=== PATIENT | female | born 1995 ===

== ENCOUNTER 2020-04-30 12:10 | Outpatient (REF) | payer MEDICAID, SELFPAY | END 2020-04-30 12:11 | disposition home or self-care (01) | LOC: HO.LAB 12:10 | PROVIDERS: Visit Provider Internal Medicine | DX: Z20.822 Contact with and (suspected) exposure to COVID-19 (principal) | CPT/HCPCS: 36415; C9803; U0003; U0005 ==

== ENCOUNTER 2020-07-08 13:47 | Outpatient (REF) | payer MEDICAID, SELFPAY ==
[2020-07-08 14:40] LABS: COVID-19 Test Negative (Negative); IDNOW Serial# 55D5AD1C
== END 2020-07-08 13:48 | disposition home or self-care (01) ==
LOC: HO.LAB 13:47
PROVIDERS: Visit Provider Internal Medicine
DX: Z20.822 Contact with and (suspected) exposure to COVID-19 (principal)
CPT/HCPCS: 36415; 87635; C9803

== ENCOUNTER 2020-07-20 10:29 | Outpatient (REF) | payer MEDICAID, SELFPAY | END 2020-07-20 10:30 | disposition home or self-care (01) | LOC: HO.LAB 10:29 | PROVIDERS: Visit Provider Internal Medicine | DX: Z20.822 Contact with and (suspected) exposure to COVID-19 (principal) | CPT/HCPCS: C9803; U0003; U0005 ==

== ENCOUNTER 2020-11-29 11:23 | Emergency (ER) | payer MEDICAID, SELFPAY ==
[2020-11-29 11:54] VITALS: BP 117/75; PULSE 117; RESP 17; TEMP 37.1; O2SAT 97; BMI 25.3
[2020-11-29 12:16] LABS: COVID-19 Test Positive (Negative); IDNOW Serial# 9DD0AD1C
[2020-11-29 12:25] VITALS: PULSE 105; O2SAT 98
--- NOTE | 2020-11-29 12:52 | ED.URI ---
HPI - URI/Sore Throat General Chief Complaint: Upper Respiratory Symptoms Stated Complaint: flu like symptoms Time Seen by Provider: 11/29/20 12:26 Source: patient Mode of arrival: ambulatory Limitations: no limitations History of Present Illness HPI Narrative: 25 y/o healthy female presents to the ER with 3 days of body aches, headache, cold sweat and chills. She also reports a dry cough. Overall just does not feel well. She denies SOB, NATION or chest pain. No N/V/D or abdominal pain. She is eating and drinking normally. She is not vaccinated against COVID-19. She has had no known sick contacts. 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 MD elicited complaint: cough, nasal congestion and other (body aches and headache) Onset (ago): day(s) (3) Consistency: constant Severity: moderate Able to tolerate fluids by mouth: Yes Exacerbating factors: nothing Relieving factors: OTC cold medicine Associated symptoms: chills, myalgias, diaphoresis, headache, nasal congestion, sore throat and cough Treatments prior to arrival: none Related Data Allergies Allergy/AdvReac Type Severity Reaction Status Date / Time No Known Allergies Allergy Unverified 12/05/19 19:35 [No Known Allergies*] Review of Systems Review of Systems: Constitutional: No Fever, + Chills ENT/Mouth: + sore throat, + Rhinorrhea, No Swallowing Difficulty Eyes: No Eye Pain, No Swelling, No Redness Cardiovascular: No Chest Pain, No SOB Respiratory: + Cough, No Sputum, No Wheezing, No dyspnea Gastrointestinal: No Nausea, No Vomiting, No Diarrhea, No abdominal Pain Musculoskeletal: No joint pain, + Myalgias Skin: No Skin Lesions, No rash Neuro: + Weakness, No Numbness, No Dizziness, + Headache Heme/Lymph: No Lymphadenopathy PMFSH Past Medical History Medical History (Updated 11/29/20 @ 12:53 by JOSE Grimes) Hypothyroid Social History Social History Advance Directives: No Advance Directives Information Provided: No Patient : No Physical Exam Vital Signs: Vital Signs: Last Vital Signs Temp 98.8 F 11/29/20 11:54 Pulse 105 H 11/29/20 12:25 Resp 17 11/29/20 11:54 BP 117/75 11/29/20 11:54 Pulse Ox 98 11/29/20 12:25 Body Mass Index 25.3 Appearance: Alert. Oriented X3. No acute distress. Eyes: Normal inspection ENT: Pharynx normal. No tonsillar exudate or swelling Neck: Normal inspection. Neck supple. CVS: Normal heart rate and rhythm. Tachycardic resolved. Pulses normal. Respiratory: No respiratory distress. Breath sounds normal. Dry cough noted. Abdomen: Soft and nontender. +BS x4 Skin: Skin warm and dry. Normal skin color. Normal skin turgor. No rashes. Extremities: No lower extremity edema. No calf tenderness Neuro: Oriented X 3. Nonfocal Course Course Course Narrative: 25 y/o female presenting with 3 days of COVID symptoms without known exposure, not vaccinated, found to be COVID positive today. She was tachycardic and diaphoretic on arrival 118 --105 and now normal HR. She has no SOB, NATION, or chest pain. She is not on OCP. Doubt PE. PERC negative. She appears non-toxic. Results were d/w patient and all questions were answered. She is stable for discharge with supportive care. Return precautions were discussed and she expressed understanding. MDM - URI/Sore Throat Lab Data Labs: Lab Results 11/29/20 Range/Units 11:54 COVID-19 (DEION) Positive A (Negative) COVID-19 Clin Com See Note Critical Care Time Critical Care Time Critical Care Time: No Discharge Plan Discharge Clinical Impression: COVID-19 Patient Disposition: Home, Self-Care Instructions: COVID-19 (Coronavirus Disease 2019) (ED) Additional Instructions: You were found to be COVID-19 POSITIVE today. Your exam and oxygen levels were normal. Rest. Drink plenty of fluids. Do not go out in public for the next 10 days. Take over the counter cold/flu medications as needed for your symptoms. Take Tylenol and/or Motrin as needed for fevers and body aches. Follow up with your doctor this week. If you develop shortness of breath or develop difficulty breathing or any other concerning symptom come back to the ER for further evaluation. Stand Alone Forms: Work/School Release
== END 2020-11-29 13:07 | disposition home or self-care (01) ==
PROVIDERS: Emergency Provider Emergency Medicine; PCP Internal Medicine
DX: U07.1 COVID-19 (principal); R51.9 Headache, unspecified; R05 Cough; M79.10 Myalgia, unspecified site
CPT/HCPCS: 36415; 87635; 99283

== ENCOUNTER 2023-06-18 03:15 | Emergency (ER) | payer MEDICAID, SELFPAY ==
[2023-06-18 03:21] VITALS: BP 122/79; PULSE 107; RESP 17; TEMP 36.7; O2SAT 98
[2023-06-18 03:26] VITALS: BMI 25.1
--- NOTE | 2023-06-18 03:39 | ED.NAVMDI ---
HPI - Nausea/Vomiting/Diarrhea General Chief complaint: Nausea/Vomiting/Diarrhea Stated complaint: n/v/d Time Seen by Provider: 06/18/23 03:37 Source: patient Mode of arrival: ambulatory Limitations: no limitations History of Present Illness HPI Narrative: 28 yo female otherwise healthy here with c/o eating food at work including shrimp then developing abrupt onset vomiting and diarrhea since arriving home from work. She has upper abdominal pain as well. Everything started all at once. No travel or antibiotic use recently MD elicited complaint: nausea, vomiting, diarrhea and abdominal pain Onset (ago): hour(s) (4pm yesterday ) Description of vomiting: food contents and watery Description of diarrhea: watery Associated nausea: Yes Associated abdominal pain: Yes Location of pain: epigastric Radiation: diffuse Pain consistency: intermittent Severity: moderate Quality: aching Exacerbating factors: eating Relieving factors: none Context: possible food poisoning Associated symptoms: denies other symptoms Related Data Previous Rx's Medication Instructions Recorded ondansetron 4 mg disintegrating 4 mg PO Q8H PRN nausea and 06/18/23 tablet vomiting #20 tabs Allergies Allergy/AdvReac Type Severity Reaction Status Date / Time No Known Allergies Allergy Verified 06/18/23 03:29 [No Known Allergies*] Review of Systems Review of Systems: Constitutional : No Weight loss, No Fever, No Chills ENT/Mouth : No sore throat, No Rhinorrhea Eyes: No Swelling, No Redness Cardiovascular : No Chest Pain, No SOB, NoEdema Respiratory : No Cough, No Sputum, No Wheezing Gastrointestinal : Positive Nausea, Positive Vomiting, positive Diarrhea, positive abdominal Pain, No Hematochezia, No Melena Genitourinary : No Dysuria, No Urinary Frequency, No Hematuria, No Urgency Musculoskeletal : No joint pain, No Myalgias, No Joint Swelling Skin : No Skin Lesions, No rash Neuro : No Weakness, No Numbness, No Dizziness, No Headache All other systems reviewed and are negative. Gastrointestinal: Gastrointestinal: Reports nausea PMFSH Past Medical History Attestation statement: The following information was validated with the patient. Source: old records reviewed Medical History Hypothyroid Social History Social History Alcohol intake: never Patient Tobacco Use Status: Never used Tobacco Smoked in Last 30 Days: No Use of substances other than those prescribed or required for medical reasons: No Advance Directives: No Advance Directives Information Provided: No Patient : No Physical Exam Vital Signs: Vital Signs: Last Vital Signs Temp 98.1 F 06/18/23 03:21 Pulse 107 H 06/18/23 03:21 Resp 17 06/18/23 03:21 BP 122/79 06/18/23 03:21 Pulse Ox 98 06/18/23 03:21 O2 Del Method Room Air 06/18/23 03:21 BMI result Body Mass Index 25.1 Appearance: Alert. Oriented X3. No acute distress. Eyes: Pupils equal, round and reactive to light. ENT: Pharynx mildly dry MM Neck: Normal inspection. Neck supple. CVS: Normal heart rate and rhythm. Pulses normal. Respiratory: No respiratory distress. Breath sounds normal. Abdomen: Soft and nontender. Skin: Skin warm and dry. Normal skin color. Normal skin turgor. Extremities: No lower extremity edema. No calf ttp Neuro: Oriented X 3. No motor deficit. No sensory deficit. Medications Administered Discontinued Medications Generic Name Dose Route Start Last Admin Trade Name Freq PRN Reason Stop Dose Admin Sodium Chloride 1,000 mls @ 999 mls/hr 06/18/23 03:45 06/18/23 03:56 Ns IV 06/18/23 04:45 999 mls/hr .Q1H1M KAELYN Administration Ketorolac Tromethamine 15 mg 06/18/23 03:38 06/18/23 03:56 Ketorolac Tromethamine 15 Mg/Ml Vial IVPUSH 06/18/23 03:39 15 mg ONCE ONE Administration Ondansetron HCl 4 mg 06/18/23 03:38 06/18/23 03:55 Ondansetron Hcl 4 Mg/2 Ml Vial IVPUSH 06/18/23 03:39 4 mg ONCE ONE Administration Medical Decision Making Medical Decision Making [facility] Narrative: 28 yo female otherwise healthy here with abrupt onset n/v/d and cramps following food served at work symptoms all started together so high likelihood of viral or foodborne illness at this time will obtain basic labs, hydrate, provide zofran and toradol Differential Diagnosis Differential Diagnoses: The differential diagnosis associated with the presentation includes food toxicity, viral syndrome Admission/Observation Consideration of admission/observation: Escalation of care including admission/observation considered tolerating PO feels much better stable for DC Lab Data MDM Lab Attestation statement: I reviewed the patient's lab results. 06/18/23 03:52 06/18/23 03:52 Labs: Lab Results 06/18/23 Range/Units 03:52 WBC 11.4 H (4.8-10.8) X10*3/uL RBC 4.53 (4.20-5.50) X10*6/uL Hgb 14.0 (12.0-16.0) g/dl Hct 40.3 (37.0-47.0) % MCV 89.0 (80.0-98.0) fL MCH 30.9 (27.0-33.0) pg MCHC 34.7 (31.0-35.0) g/dl RDW 12.9 (11.0-16.0) % Plt Count 235 (160-400) X10*3/uL MPV 11.1 (9.4-12.3) fL Immature Gran % (Auto) 0.4 (0.0-0.4) % Neut % (Auto) 84.2 H (45-73) % Lymph % (Auto) 7.8 L (20-40) % [place] % (Auto) 6.9 (2-11) % Eos % (Auto) 0.6 (0-4) % Baso % (Auto) 0.1 (0-2) % Lymph # (Auto) 0.9 L (1.2-4.9) X10*3/uL [place] # (Auto) 0.8 (0.1-1.2) X10*3/uL Eos # (Auto) 0.1 (0.0-0.4) X10*3/uL Baso # (Auto) 0.0 (0.0-0.2) X10*3/uL Abs Immat Gran (auto) 0.05 H (0.00-0.03) X10*3/uL Absolute Neuts (auto) 9.6 H (2.0-8.3) x10*3/uL Absolute Nucleated RBC 0.000 (0.0-0.012) X10*3/uL Nucleated RBC % (auto) 0.0 (0.0-0.2) /100WBC Sodium 140 (135-145) mmol/L Potassium 4.0 (3.3-5.1) mmol/L Chloride 110 H (96-108) mmol/L Carbon Dioxide 21 L (22-29) mmol/L Anion Gap 13 (12-20) BUN 15 (9-16) mg/dL Creatinine 0.84 (0.5-1.4) mg/dL Estim Creat Clear Calc 91.5 Estimated GFR > 60 Random Glucose 134 H (60-115) mg/dL Calcium 9.1 (8.4-10.2) mg/dL Total Bilirubin 0.7 (0.0-1.0) mg/dL Direct Bilirubin 0.2 (0.0-0.5) mg/dL AST 25 (5-31) U/L ALT 20 (0-31) U/L Alkaline Phosphatase 68 (39-117) U/L Total Protein 7.9 (6.5-8.0) g/dL Albumin 4.6 (3.5-5.0) g/dL Lipase 21 (8-78) U/L Independent Historian Clinical information obtained from an independent historian. History obtained from or confirmed by: Spouse Prescription Management I considered prescription management with: Other Discharge Plan Discharge Clinical Impression: Abdominal pain, vomiting, and diarrhea Patient Disposition: Home, Self-Care Instructions: Acute Nausea and Vomiting (ED), Acute Diarrhea (ED) Additional Instructions: bland diet, apple sauce rice toast bananas and yogurt stay hydrated advance diet slowly as tolerated Prescriptions: New ondansetron 4 mg tablet,disintegrating 4 mg PO Q8H PRN (Reason: nausea and vomiting) Qty: 20 0RF Stand Alone Forms: Work/School Release
[2023-06-18] MEDS: ondansetron HCL 4 MG/2 ML VIAL IVPUSH (03:55)
[2023-06-18 03:56] LABS: MANUAL DIFF FLAG NO
[2023-06-18] MEDS: Ketorolac Tromethamine 15 MG/ML VIAL IVPUSH (03:56)
[2023-06-18] MEDS: 0.9 % Sodium Chloride 1,000 ML 999 ML IV (03:56)
[2023-06-18 03:59] LABS: Basophils Percent Auto 0.1 % (0-2); Eosinophils Absolute Auto 0.1 X10*3/uL (0.0-0.4); Eosinophils Percent Auto 0.6 % (0-4); Hematocrit 40.3 % (37.0-47.0); Imm Gran Abs Auto 0.05 X10*3/uL (0.00-0.03); Imm Gran Pct Auto 0.4 % (0.0-0.4); Lymphocytes Absolute Auto 0.9 X10*3/uL (1.2-4.9); Lymphocytes Percent Auto 7.8 % (20-40); Mean Corpuscular HGB Conc 34.7 g/dl (31.0-35.0); Mean Corpuscular Hemoglobin 30.9 pg (27.0-33.0); Mean Platelet Volume 11.1 fL (9.4-12.3); Monocytes Absolute Auto 0.8 X10*3/uL (0.1-1.2); Monocytes Percent Auto 6.9 % (2-11); Neutrophils Absolute Auto 9.6 x10*3/uL (2.0-8.3); Neutrophils Percent Auto 84.2 % (45-73); Platelet Count 235 X10*3/uL (160-400); Red Blood Count 4.53 X10*6/uL (4.20-5.50); Red Cell Distribution Width 12.9 % (11.0-16.0); White Blood Count 11.4 X10*3/uL (4.8-10.8)
[2023-06-18 04:17] LABS: Alanine Aminotransferase 20 U/L (0-31); Albumin Level 4.6 g/dL (3.5-5.0); Alkaline Phosphatase 68 U/L (39-117); Anion Gap 13 (12-20); Aspartate Amino Transferase 25 U/L (5-31); Bilirubin Direct 0.2 mg/dL (0.0-0.5); Bilirubin Total 0.7 mg/dL (0.0-1.0); Blood Urea Nitrogen 15 mg/dL (9-16); Calcium 9.1 mg/dL (8.4-10.2); Carbon Dioxide 21 mmol/L (22-29); Chloride 110 mmol/L (96-108); Creatinine Clr Calc Pharmacy 91.5; Estimated Glomerular Filt Rate > 60; Glucose Random 134 mg/dL (60-115); Lipase 21 U/L (8-78); Sodium 140 mmol/L (135-145); Total Protein 7.9 g/dL (6.5-8.0)
[2023-06-18 05:38] VITALS: BP 124/76; PULSE 81; RESP 18; TEMP 36.8; O2SAT 100
[2023-06-18 05:48] LABS: Appearance Urine Clear; Color Urine Yellow; Glucose Urine UA Negative (Negative); Leukocyte Esterase Urine Trace (Negative); Nitrite Urine Negative (Negative); UMIC TRIGGER UACC YES; Urine Blood Negative (Negative); Urine Ketones Trace mg/dL (Negative); Urine Protein Negative (Neg-Trace)
[2023-06-18 05:50] LABS: UPreg QC Valid YES; Urine Pregnancy NEGATIVE (NEGATIVE)
[2023-06-18 06:04] LABS: Bacteria Urine Trace (None Seen); Hyaline Casts Urine 0-2 /LPF (0-2); RBC Urine 0-2 /HPF (0-2); WBC Urine 0-5 /HPF (0-5)
[2023-06-18 06:05] VITALS: BP 124/76; PULSE 77; RESP 16; TEMP 36.8; O2SAT 100
== END 2023-06-18 06:17 | disposition home or self-care (01) ==
PROVIDERS: Emergency Provider Emergency Medicine; PCP Internal Medicine
DX: R10.10 Upper abdominal pain, unspecified (principal); R11.10 Vomiting, unspecified; R19.7 Diarrhea, unspecified
CPT/HCPCS: 36415; 80048; 80076; 81001; 81025; 83690; 85025; 96361; 96374; 96375; 99284; J1885; J2405

== ENCOUNTER 2023-09-11 19:17 | Outpatient (REF) | payer MEDICAID, SELFPAY ==
[2023-10-26 09:56] LABS: C. trachomatis RNA TMA NOT DETECTED
[2023-10-26 09:57] LABS: N. gonorrhoeae RNA TMA NOT DETECTED; Trichomonas (NAAT) NOT DETECTED
== END 2023-09-11 19:18 | disposition home or self-care (01) ==
LOC: HO.HHCLNP 19:17
PROVIDERS: Visit Provider Internal Medicine
DX: Z12.4 Encounter for screening for malignant neoplasm of cervix (principal)
CPT/HCPCS: 36415; 87491; 87591; 87661; 88175

== ENCOUNTER 2023-09-29 08:47 | Emergency (ER) | payer MEDICAID, SELFPAY ==
[2023-09-29 08:48] VITALS: BP 119/70; PULSE 87; RESP 18; TEMP 36.4; O2SAT 98; BMI 27.8
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
[2023-09-29] MEDS: Cyclobenzaprine HCl 5 MG TABLET PO (09:19)
[2023-09-29] MEDS: Ketorolac Tromethamine 15 MG/ML VIAL IM (09:20)
--- NOTE | 2023-09-29 09:22 | PC.NURSE ---
pt medicated per provider order.
[2023-09-29 09:23] VITALS: BP 119/70; PULSE 87; RESP 18; TEMP 36.4; O2SAT 98
== END 2023-09-29 09:23 | disposition home or self-care (01) ==
PROVIDERS: Emergency Provider Emergency Medicine; PCP Internal Medicine
DX: M54.12 Radiculopathy, cervical region (principal)
CPT/HCPCS: 96372; 99283; 99284; J1885

== ENCOUNTER 2023-12-11 13:18 | Emergency (ER) | payer OTHER, SELFPAY ==
[2023-12-11 13:50] VITALS: BP 130/86; PULSE 73; RESP 16; TEMP 36.4; O2SAT 99; BMI 28.3
--- NOTE | 2023-12-11 14:04 | ED.GENADULT ---
HPI - General Adult General Chief complaint: Wound/Laceration Stated complaint: l middle finger laceration at work Time Seen by Provider: 12/11/23 14:19 Source: patient Mode of arrival: ambulatory Limitations: no limitations History of Present Illness ED Provider: Tangela Johnson PA-C HPI narrative: Patient is a 28 year old assigned female at with no reported medical history presenting to the emergency department today with a left 3rd digit injury. Patient states that she was cutting peppers when she caught her left 3rd finger. Patient denies any dizziness, lightheadedness, abdominal pain, nausea, vomiting, fever, chills, blurry vision, double vision, loss of vision, chest pain, difficulty breathing, shortness of breath, back pain, night sweats, pain with urination, increased urinary frequency, increased urinary urgency, blood in her urine or stool, syncope or a near syncopal episode, bowel incontinence, bladder incontinence, or any other complaints at this time. Relieving factors: none Exacerbating factors: none Associated symptoms: denies other symptoms Treatments prior to arrival: none Related Data Previous Rx's ?Medication ?Instructions ?Recorded ondansetron 4 mg disintegrating 4 mg PO Q8H PRN nausea and 06/18/23 tablet vomiting #20 tabs cyclobenzaprine 5 mg tablet 5 mg PO TID PRN neck pain 7 days 09/29/23 #21 tabs cephalexin 500 mg capsule 500 mg PO Q6H 7 days #28 caps 12/11/23 Allergies Allergy/AdvReac Type Severity Reaction Status Date / Time No Known Allergies Allergy Verified 12/11/23 13:51 [No Known Allergies*] Review of Systems Constitutional: Constitutional: Reports no additional constitutional complaints, Denies chills, Denies fever(s) and Denies night sweats Eyes: Eyes: Reports no additional eye complaints, Denies blurry vision, Denies change in vision, Denies diplopia, Denies eye discharge, Denies loss of vision and Denies eye pain ENT: Denies dizziness Cardiovascular: Cardiovascular: Reports no additional cardiovascular complaints, Denies chest pain, Denies lightheadedness, Denies Loss of Consciousness and Denies dyspnea Respiratory: Respiratory: Reports no additional respiratory complaints and Denies dyspnea Gastrointestinal: Gastrointestinal: Reports no additional gastrointestinal complaints, Denies abdominal pain, Denies melena, Denies hematochezia, Denies change in bowel habits and Denies change in stool character Genitourinary: Genitourinary: Denies hematuria, Denies urinary frequency, Denies dysuria, Denies urinary incontinence, Denies urinary hesitancy and Denies urinary urgency Musculoskeletal: Musculoskeletal: Reports no additional musculoskeletal complaints, Denies numbness and Denies tingling Comments: left 3rd finger injury Neurologic: Denies dizziness, Denies loss of vision, Denies numbness and Denies tingling Psychiatric: Psychiatric: Reports no additional psychiatric complaints Endocrine: Endocrine: Reports no additional endocrine complaints Hematologic/Lymphatic: Hematologic/Lymphatic: Reports no additional hematologic/lymphatic complaints Allergic/Immunologic: Allergic/Immunologic: Reports no additional allergic/immunologic complaints [facility] Past Medical History Attestation statement: The following information was validated with the patient. Source: old records reviewed and nursing notes reviewed Medical History Hypothyroid Social History Social History Alcohol intake: never Patient Tobacco Use Status: Never used Tobacco Advance Directives: No Advance Directives Information Provided: Yes Physical Exam ED Vital Signs: Vital Signs - 24 hr 12/11/23 13:50 12/11/23 14:26 Temperature 97.6 F 97.6 F Pulse Rate 73 73 Respiratory Rate 16 16 Blood Pressure 130/86 130/86 Pulse Oximetry 99 99 Oxygen Delivery Method Room Air Room Air BMI result Body Mass Index 28.3 Const General: cooperative, no acute distress, alert and awake Nutritional Appearance: well nourished Orientation/consciousness: patient oriented x3 Limitations: no limitations [facility] Head: Yes normal to inspection and Yes atraumatic Ears: hearing grossly normal bilaterally and external ears normal General nose exam: Normal external nose present, no nasal discharge noted and no epistaxis Face and sinus: Yes normal facial exam, No abrasion and No laceration Mouth: Normal oral and palatal mucosa present, no drooling and no muffled voice Eyes General: appearance normal, both eyes and all related structures Periorbital: periorbital findings normal Eyelids: Yes eyelids normal Conjunctivae: conjunctivae normal Pupils: Equal, round and reactive pupils present EOM: EOMs intact bilaterally Neck Neck: Yes normal visual inspection, Yes full ROM and Yes no lymphadenopathy Chest Chest palpation & inspection: normal inspection of the chest Resp Effort & Inspection: normal respiratory effort and able to speak in complete sentences GI Inspection: Yes normal to inspection Neuro General: patient oriented x3 and moves all extremities Cranial nerves: Yes Equal, round and reactive pupils present Cognition (Neuro): normal cognition Extrem General: Yes full ROM and Yes capillary refill normal Hand/finger images: 1. avulsion of skin - no active bleeding, no gaping Psych Appearance: grossly normal Mental Status: mental status grossly normal Affect: normal affect Attitude: cooperative Thought process: Normal thought process present Thought content: Normal thought content present Insight: Good insight present (Psych) Course Course Course Narrative: RME performed by Tangela Johnson PA-C. Patient is a 28 year old assigned female at presenting to the emergency department with left 3rd digit injury. Patient states she cut her left middle finger with a knife and is not up to date on tetanus. Detailed physical exam and review of systems are deferred to the hook and eye machine operator. Patient placed back in the waiting room pending room availability. Medications Administered Discontinued Medications Generic Name Dose Route Start Last Admin Trade Name Freq PRN Reason Stop Dose Admin Diphtheria/Tetanus/Acell Pertussis 0.5 ml 12/11/23 13:55 12/11/23 14:17 Diphth,Pertus(Acell),Tet Adult 0.5 Ml Syringe IM 12/11/23 13:56 0.5 ml .ONCE ONE Administration Medical Decision Making Medical Decision Making MDM Narrative: Patient is a 28 year old assigned female at with no reported medical history presenting to the emergency department today with a left 3rd digit injury. Patient's physical exam was as noted in the physical exam portion of this note. I explained my physical exam findings to the patient. I answered all questions asked by the patient. Patient's wound was unable to be closed given the skin was missing. No active bleeding. I stressed the importance of the patient taking her medication as directed (either prescribed or as the over the counter packaging recommends). I stressed the importance of the patient following up with her primary care provider. I stressed the importance of the patient returning to the emergency department immediately if her symptoms were to worsen or if she were to develop any dizziness, shortness of breath, difficulty breathing, chest pain, blurry vision, loss of vision, nausea, vomiting, abdominal pain, fever, chills, back pain, or any other complaints. Patient verbalized agreement and understanding with this treatment plan and discharge. Differential Diagnosis Differential Diagnoses: The differential diagnosis associated with the presentation includes Finger injury Laceration Avulsion Admission/Observation Consideration of admission/observation: Escalation of care including admission/observation considered Patient would have been admitted to the hospital had her clinical presentation warranted hospital admission. Prescription Management I considered prescription management with: Antibiotic (patient prescribed a prophylactic antibiotic) Discharge Plan Discharge Clinical Impression: Avulsion of skin Patient Disposition: Home, Self-Care Instructions: Skin Avulsion (ED) Additional Instructions: Follow up with your primary care provider. Return to the emergency department immediately if your symptoms worsen or if you develop any dizziness, shortness of breath, difficulty breathing, chest pain, blurry vision, loss of vision, nausea, vomiting, abdominal pain, fever, chills, back pain, or any other complaints. Prescriptions: New cephalexin 500 mg capsule 500 mg PO Q6H 7 Days Qty: 28 0RF No Action ondansetron 4 mg tablet,disintegrating 4 mg PO Q8H PRN (Reason: nausea and vomiting) Qty: 20 0RF cyclobenzaprine 5 mg tablet 5 mg PO TID PRN (Reason: neck pain) 7 Days Qty: 21 0RF Referrals: Angelia Jackson MD [Primary Care Provider] - Stand Alone Forms: Work/School Release Interventions: ED Discharge Assessment Last Done: 12/11/23 14:26 Print Language: Polish
[2023-12-11] MEDS: Diphth,Pertus(ACell),Tet Adult 0.5 ML SYRINGE IM (14:17)
[2023-12-11 14:26] VITALS: BP 130/86; PULSE 73; RESP 16; TEMP 36.4; O2SAT 99
== END 2023-12-11 14:47 | disposition home or self-care (01) ==
LOC: HO.ED 14:28
PROVIDERS: Emergency Provider Emergency Medicine Emergency Medical Services; PCP Internal Medicine
DX: S61.203A Unspecified open wound of left middle finger without damage to nail, initial encounter (principal); S61.213A Laceration without foreign body of left middle finger without damage to nail, initial encounter; W26.0XXA Contact with knife, initial encounter; Y93.G1 Activity, food preparation and clean up; Y92.9 Unspecified place or not applicable; Y99.9 Unspecified external cause status; Z23 Encounter for immunization
CPT/HCPCS: 90471; 90715; 99282; 99284

== ENCOUNTER 2024-07-18 16:21 | Outpatient (REF) | payer OTHER, SELFPAY ==
--- OUTSIDE RECORDS SUMMARY | 2024-07-18 17:34 | XMS_ITS | Encounter Summary ---
Author Organization [employer] Address [address] [place] [address] Care Team Providers Care Treating Engineer Name Role Phone Angelia Jackson MD Primary Care Provide r Reason for Visit * Reason Onset Date Comments Chart prep 07/16/2024 Encounter Details Date Type Department Care Team ([facility] st Contact Info) Description 07/16/2024 Telephone [facility] [address] [place] [address] Angelia Jackson MD [address] [place] [address] Chart prep Social History Tobacco Use Types Packs/Day Years Used Date Smoking Tobacco: Former Cigarettes Passive Smoke Exposure: Current Smokeless Tobacco: Never Alcohol Use Standard Drinks/Week Comments Never 0 (1 standard drink = 0.6 oz pur e alcohol) Depression Answer Date Recorded Patient Health Questionnaire-9 Score 0 07/01/2022 Housing Stability Answer Date Recorded What is your housing situation today? I have indigo melendez 07/11/[address] you li ve. Do you have problems with any of the following? None of the above 07/11/2024 Food Insecurity Answer Date Recorded Within the past 12 months, y ou worried that your food would run out before you got money to buy more: Never True 07/11/2024 Within the past 12 months,th e food you bought just didn't last and you didn't have enough money to get more: Never True Transportation Answer Date Recorded In the past 12 months, has l ack of transportation kept you from medical appts, meetings, work or from getting things needed for daily living? No 07/11/2024 Utilities Answer Date Recorded In the past 12 months, has t he electric, gas, oil or water company threatened to shut off services in your home? No 07/11/2024 Depression Answer Date Recorded Patient Health Questionnaire-2 Score 0 07/01/2022 Internet Access Answer Date Recorded Internet Access Q1 Yes 07/11/2024 Internet Access Q2 Not on file 07/11/2024 Comments Unknown Sex and Gender Information Value Date Recorded Sex Assigned at Female 01/17/2022 10:34 AM EDT Legal Sex Female 10:34 AM EDT Gender Identity Female 01/17/2022 10:34 AM EDT Sexual Orientation Bisexual 01/17/2022 10 :34 AM EDT documented as of this encounter Miscellaneous Notes * Telephone Encounter - Gogo Santos [place] - 07/16/2024 1:35 PM EDT Chart Prep Labs: not done Images: done Referrals: complete Vaccines due: Covid, Flu, and Hep B Screenings: not applicable Overdue care gaps: PHQ-9 and Disability screen documented in this encounter Plan of Treatment Not on file documented as of this encounter Visit Diagnoses Not on filedocumented in this encounter Additional Health Concerns Assessment Noted Time PHQ-9 Depression Total Score: 0 07/02/19 23 2:28 PM EDT documented as of this encounter Care Teams Treating Engineer Relationship Specialty Start Date End Date Angelia Jackson MD [address] [place] [address] PCP - General Family Medicine 01/19/18 documented as of this encounter
--- OUTSIDE RECORDS SUMMARY | 2024-07-18 17:34 | XMS_ITS | Encounter Summary ---
Author Organization [employer] Address [address] [place] [address] Care Team Providers Care Pharmacy Intake Coordinator Name Role Phone Angelia Jackson MD Primary Care Provide r Encounter Details Date Type Department Care Team ([facility] st Contact Info) Description 07/18/2024 2:45 PM EDT Office Visit [facility] [address] [place] [address] Angelia Jackson MD [address] [place] [address] Encounter for screening and preventative care; Dysmenorrhea; Neck pain; Vaginal discharge; Abnormal urine odor Social History Tobacco Use Types Packs/Day Years Used Date Smoking Tobacco: Former Cigarettes Passive Smoke Exposure: Current Smokeless Tobacco: Never Alcohol Use Standard Drinks/Week Comments Never 0 (1 standard drink = 0.6 oz pur e alcohol) Depression Answer Date Recorded Patient Health Questionnaire-9 Score 0 07/18/2024 Patient Health Questionnaire-9 Score 0 07/18/2024 Last PHQ-9: Questionnaire Data Not on file 0 07/18/2024 Housing Stability Answer Date Recorded What is [...] Date Recorded Patient Health Questionnaire-2 Score 0 07/18/2024 Internet Access Answer Date Recorded Internet Access Q1 Yes 07/11/2024 Internet Access Q2 Not on file 07/11/2024 Comments Unknown Sex and Gender Information Value Date Recorded Sex Assigned at Female 01/17/2022 10:34 AM EDT Legal Sex Female 10:34 AM EDT Gender Identity Female 01/17/2022 10:34 AM EDT Sexual Orientation Bisexual 01/17/2022 10 :34 AM EDT documented as of this encounter Last Filed Vital Signs Vital Sign Reading Time Taken Comments Blood Pressure 134/88 07/18/2024 2:29 PM EDT Pulse 76 07/18/2024 2:29 PM EDT Temperature 36.4 ??C (97.5 ??F) 07/18/2024 2:29 PM ED T Respiratory Rate 14 07/18/2024 2:29 PM EDT Oxygen Saturation - - Inhaled Oxygen Concentration - - Weight 63.5 kg (140 lb) 07/18/2024 2:29 PM EDT Height 160 cm (5' 3 ) 07/18/2024 2:29 PM EDT Body Mass Index 24.8 07/18/2024 2:29 PM EDT documented in this encounter Progress Notes * Angelia Kuo MD - 07/18/2024 2:45 PM EDT SUBJECTIVE: Jalyn Mantilla is a 29 y.o. year old female who presents for Physical . 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 (Marihuana) Diet:regular Exercise:5 days a week going to gym LMP: 04/16/25 irregular Pap Smear:09/10/2028 Eye Care:up to date Dental Care:up to date PMHx:see below Immunizations: Reviewed with patient Acute Concerns: Urine odor Vaginal discharge Dysmenorrhea Neck pain: Patient reports she feels much better but diclofenac gel really helped her and she is asking for refill Social History Social History Narrative Not on file Patient Active Problem List Diagnosis Vitamin D deficiency Shoulder pain Mixed anxiety and depressive disorder Heartburn Change in mole Anxiety Acquired hypothyroidism Encounter for screening and preventative care Other constipation Skin tag Other viral warts Hair loss Encounter for Papanicolaou smear for cervical cancer screening Dysmenorrhea Neck pain Vaginal discharge Abnormal urine odor No family history on file. Review of Systems Constitutional: Negative. HENT: Negative. Respiratory: Negative. Cardiovascular: Negative. Genitourinary: Positive for menstrual problem. Musculoskeletal: Positive for neck pain. OBJECTIVE: Vitals: 07/18/24 1429 BP: 134/88 BP Location: Left arm Patient Position: Sitting BP Cuff Size: Adult Pulse: 76 Resp: 14 Temp: 97.5 ??F (36.4 ??C) TempSrc: Oral Weight: 140 lb (63.5 kg) Height: 5' 3 (1.6 m) Physical Exam Constitutional: Appearance: Normal appearance. Cardiovascular: Rate and Rhythm: Normal rate and regular rhythm. Pulmonary: Effort: Pulmonary effort is normal. Breath sounds: Normal breath sounds. Abdominal: General: Abdomen is flat. Palpations: Abdomen is soft. Musculoskeletal: Right lower leg: No edema. Left lower leg: No edema. Neurological: Mental Status: She is alert. Follow Up: No follow-ups on file. Current Outpatient Medications on File Prior to Visit Medication Sig Dispense Refill acetaminophen (Tylenol 8 Hour) 650 MG ER tablet Take 1 tablet (650 mg) by mouth every 8 (eight) hours if needed for mild pain. Do not crush, chew, or split. 60 tablet 1 baclofen (Lioresal) 10 MG tablet Take 1 tablet (10 mg) by mouth if needed in the morning, at noon, and at bedtime for muscle spasms. 60 tablet 1 cholecalciferol (Vitamin D-3) 50 MCG (2000 UT) tablet Take 1 tablet (50 mcg) by mouth in the morning. 30 tablet 3 Diclofenac Sodium 1 % gel Apply 2 g topically if needed in the morning, at noon, in the evening, and at bedtime (pain). 150 g 3 Fluocinolone Acetonide Scalp ([place]-Smoothe/FS Scalp) 0.01 % oil Once weekly at night and apply head cover 118.28 mL 2 ketoconazole (Nizoral) 2 % shampoo Once weekly Do not start before October 30, 2023. 120 mL 1 naproxen (Naprosyn) 500 MG tablet Take 1 tablet (500 mg) by mouth if needed in the morning and at bedtime for mild pain. 40 tablet 1 No current facility-administered medications on file prior to visit. Problem List Items Addressed This Visit Encounter for screening and preventative care Relevant Orders ABO Group And RH Type Dysmenorrhea Ibuprofen 800 mg every 8 hours as needed whenever she has her menstrual period Relevant Medications ibuprofen 800 MG tablet Neck pain Apply heat on affected area Diclofenac gel apply twice daily if needed Relevant Medications Diclofenac Sodium 1 % gel Vaginal discharge Patient will be contacted with results Relevant Orders Bacterial Vaginosis Abnormal urine odor Relevant Orders POCT Urinalysis (Completed) documented in this encounter Miscellaneous Notes * Assessment & Plan Note - Angelia Kuo MD - 07/18/2024 3:45 PM EDT Associated Problem(s): Vaginal discharge Patient will be contacted with results * Assessment & Plan Note - Angelia Kuo MD - 07/18/2024 3:44 PM EDT Associated Problem(s): Neck pain Apply heat on affected area Diclofenac gel apply twice daily if needed * Assessment & Plan Note - Angelia Kuo MD - 07/18/2024 3:43 PM EDT Associated Problem(s): Dysmenorrhea Ibuprofen 800 mg every 8 hours as needed whenever she has her menstrual period documented in this encounter Plan of Treatment Scheduled Orders Name Type Priority Associated Diagnoses Orde r Schedule ABO Group And RH Type Lab Routine Encounter for screening and preventative care Expected: 07/18/2024 (Approximate), Expires: 07/18/2025 Bacterial Vaginosis Microbiology Routine Vaginal discharge Ordered: 07/18/2024 documented as of this encounter Procedures Procedure Name Priority Date/Time Associated Diagnosis Comments POCT URINALYSIS DIPSTICK Routine 07/18/2024 3:10 PM EDT Abnormal urine odor documented in this encounter Results * (ABNORMAL) POCT Urinalysis (07/18/2024 3:10 PM EDT) Color, UA Yellow Clarity, UA Clear Glucose, UA Negative Bilirubin, UA Negative Ketones, UA Negative Spec Grav, UA 1.020 Blood, UA Positive(A) Negative, None Detected Comment:trace pH, UA 7.5 Protein, UA Negative Urobilinogen, UA 1.0 Leukocytes, UA Negative Negative, Rare, Trace Nitrite, UA Negative Negative, None Detected Appearance, UA clear QC Media Lot # [id number] Lot# Expiration Date Urine 07/18/2024 3:10 PM EDT us Angelia Kuo MD POINT OF CARE TEST EN TER/EDIT ORDERABLES Final Result documented in this encounter Visit Diagnoses Diagnosis Encounter for screening and preventative care Dysmenorrhea Neck pain Cervicalgia Vaginal discharge Leukorrhea, not specified as infective Abnormal urine odor Other nonspecific finding on examination of urine documented in this encounter Additional Health Concerns Assessment Noted Time PHQ-9 Depression Total Score: 0 07/19/19 25 2:30 PM EDT documented as of this encounter Care Teams Pharmacy Intake Coordinator Relationship Specialty Start Date End Date Angelia Jackson MD [address] [place] [id number] PCP - General Family Medicine 01/19/18 documented as of this encounter
--- OUTSIDE RECORDS SUMMARY | 2024-07-18 17:34 | XMS_ITS | Clinical Summary ---
Author Organization [employer] Address [address] [place] [address] Care Team Providers Care Construction Millwright Name Role Phone Angelia Jackson MD Primary Care Provide r Allergies Active Allergy Reactions Criticality Noted Date Comments Tramadol 04/24/2019 Other reaction(s): Pale complexion Medications cholecalciferol (Vitamin D-3) 50 MCG (1999) tablet Take 1 tablet (50 mcg) by mouth in the morning. 30 tablet 3 3 Active baclofen (Lioresal) 10 MG tablet Take 1 tablet (10 mg) by mouth if needed in the morning, at noon, and at bedtime for muscle spasms. 60 tablet 1 4 Active acetaminophen (Tylenol 8 Hour) 650 MG ER tablet Take 1 tablet (650 mg) by mouth every 8 (eight) hours if needed for mild pain. Do not crush, chew, or split. 60 tablet 1 4 10/11/19 25 Active naproxen (Naprosyn) 500 MG tablet Take 1 tablet (500 mg) by mouth if needed in the morning and at bedtime for mild pain. 40 tablet 1 4 10/11/19 25 Active Diclofenac Sodium 1 % gel Apply 2 g topically if needed in the morning, at noon, in the evening, and at bedtime (pain). 150 g 3 4 Active Fluocinolone Acetonide Scalp ([place]-Smoothe/ FS Scalp) 0.01 % oilIndications: Seborrheic dermatitis Once weekly at night and apply head cover 118.28 mL 2 4 Active ketoconazole (Nizoral) 2 % shampooIndicati ons:Seborrheic dermatitis Once weekly Do not start before October 30, 2023. 120 mL 1 4 Active ibuprofen 800 MG tabletIndicatio ns:Dysmenorrhea Take 1 tablet (800 mg) by mouth every 8 (eight) hours if needed for mild pain for up to 20 days. 30 tablet 1 5 08/08/19 25 Active Diclofenac Sodium 1 % gelIndications: Neck pain Apply 1 Application topically every 12 (twelve) hours if needed (apply on affected charisma). 150 g 1 5 Active Active Problems Problem Noted Date Diagnosed Date Dysmenorrhea 07/18/2024 Assessment & Plan (07/18/2024 3:43 PM EDT): Ibuprofen 800 mg every 8 hours as needed whenever she has her menstrual period Neck pain 07/18/2024 Assessment & Plan (07/18/2024 3:44 PM EDT): Apply heat on affected area Diclofenac gel apply twice daily if needed Vaginal discharge 07/18/2024 Assessment & Plan (07/18/2024 3:45 PM EDT): Patient will be contacted with results Abnormal urine odor 07/18/2024 Encounter for Papanicolaou s mear for cervical cancer screening 09/11/2023 Assessment & Plan (09/11/2023 2:22 PM EDT): Patient will be contacted with results, PAP smear and pelvic exam done Skin tag 07/05/2023 Other viral warts 07/05/2023 Hair loss 07/05/2023 Encounter for screening and preventative care Assessment & Plan (07/05/2023 12:23 PM EDT): See HPI Assessment & Plan (07/01/2022 3:22 PM EDT): Blood work ordered today HPV vaccine sent to pharmacy PAP smear for next visit Other constipation 07/01/2022 Assessment & Plan (07/01/2022 3:23 PM EDT): I advise increase water intake, walking and more fiber in her diet I prescribed colace to be taken PRN Vitamin D deficiency 06/30/2022 Shoulder pain 06/30/2022 Mixed anxiety and depressive disorder 06/30/2022 Heartburn 06/30/2022 Change in mole 06/30/2022 Anxiety 06/30/2022 Acquired hypothyroidism 06/30/2022 Resolved Problems Problem Noted Date Diagnosed Date Resolved Date UTI symptoms 06/30/2022 10/11/2023 Encounters Date Type Department Care Team Description 07/18/2024 2:45 PM EDT Office Visit [address] [address] Angelia Jackson MD Encounter for screening and preventative care; Dysmenorrhea; Neck pain; Vaginal discharge; Abnormal urine odor 07/18/2024 Travel 07/16/[address] [address] Angelia Jackson MD Chart prep 07/11/2024 Patient Outreach [address] [address] Angelia Jackson MD Pre-visit Planning (SDOH screening negative and Tobacco screening negative) 05/31/2024 Population Health Risk Score [facility] ([facility] Department [address] [place] [phone] Provider, Population Health Generic 05/07/[address] [address] Angelia Jackson MD (May Recall 05/02/[address] [address] Angelia Jackson MD Nurse Triage from Last 3 Months Immunizations Name Administration Dates Next Due Tdap 09/25/2018 Social History Tobacco Use Types Packs/Day Years Used Date Smoking Tobacco: Former Cigarettes Passive Smoke Exposure: Current Smokeless Tobacco: Never Tobacco Cessation:Counseling Given: Not Answered Alcohol Use Standard Drinks/Week Comments Never 0 [...] t he electric, gas, oil or water [employer] threatened to shut off services in your [...] Orientation Bisexual 01/17/2022 10 :34 AM EDT Last Filed Vital Signs Vital Sign Reading Time Taken Comments Blood Pressure 134/88 07/18/2024 2:29 PM EDT Pulse 76 07/18/2024 2:29 PM EDT Temperature 36.4 ??C (97.5 ??F) 07/18/2024 2:29 PM ED T Respiratory Rate 14 07/18/2024 2:29 PM EDT Oxygen Saturation 99% 09/11/2023 1:55 PM EDT Inhaled Oxygen Concentration - - Weight 63.5 kg (140 lb) 07/18/2024 2:29 PM EDT Height 160 cm (5' 3 ) 07/18/2024 2:29 PM EDT Body Mass Index 24.8 07/18/2024 2:29 PM EDT Plan of Treatment Health Maintenance Due Date Last Done Comments Alcohol/Substance Use Screening 2009 Family Planning (PISQ) 02/12/2012 Hepatitis B Vaccines (1 of 3 - 19+ 3-dose series) 02/12/2016 COVID-19 Vaccine (1 - 2023-2 5 season) 2023 Influenza Vaccine (#1) 2023 SDOH Screening 07/11/2025 07/11/2024 Depression Screening 07/18/2025 07/18/2024, 07/18/2024 Tobacco Screening 07/18/2025 07/18/2024 Pap Smear 09/10/2028 09/11/2023, 08/21/2018 DTaP/Tdap/Td Vaccines (3 - T d or Tdap) 12/10/2033 12/11/2023, 09/25/2018 Zoster Vaccines (1 of 2) 2047 RSV Patients and Patients Aged 60 years or older (1 - 1-dose 75+ series) 02/12/2072 HIV Screening Completed 07/08/2022, 07/19/2021 Hepatitis C Screening Completed 07/08/2022 , 07/19/2021 HIB Vaccines Aged Out No longer eligi ble based on patient's age to complete this topic HPV Vaccines Aged Out No longer eligi ble based on patient's age to complete this topic Hepatitis A Vaccines Aged Out No long er eligible based on patient's age to complete this topic IPV Vaccines Aged Out No longer eligi ble based on patient's age to complete this topic Meningococcal Vaccine Aged Out No jelani marysol eligible based on patient's age to complete this topic Pneumococcal Vaccine: Pediatrics (0 to 5 Years) and At-Risk Patients (6 to 49) Years) Aged Out No longer eligible b ased on patient's age to complete this topic RSV under 20 months Aged Out No longe r eligible based on patient's age to complete this topic Rotavirus Vaccines Aged Out No longer eligible based on patient's age to complete this topic Procedures Procedure Name Priority Date/Time Associated Diagnosis Comments POCT URINALYSIS DIPSTICK Routine 07/18/2024 3:10 PM EDT Abnormal urine odor THINPREP IMAGING SYSTEM PAP Routine 09/11/2023 12:00 AM EDT HEPATITIS C VIRAL RNA, QUANTITATIVE, REAL-TIME PCR Routine 07/08/2022 8:03 AM EDT Encounter for screening and preventative care HIV 1/2 ANTIGEN/ANTIBODY, FOURTH GENERATION W/RFL Routine 07/08/2022 8:03 AM EDT Encounter for screening and preventative care from Last 3 Months or Most Recently Relevant to Health Maintenance Results * (ABNORMAL) POCT Urinalysis (07/18/2024 3:10 [...] Expiration Date Urine 07/18/2024 3:10 PM EDT Angelia Kuo MD POINT OF CARE TEST EN TER/EDIT ORDERABLES Final Result * ThinPrep Imaging System Pap (09/11/2023 12:00 AM EDT) SOURCE: SEE NOTE [facility] Comment:None given Report Status: TNP [facility] Clinical Information: SEE NOTE [facility] Comment:R LMP: SEE NOTE [facility] Comment:09/03/2023 Prev. PAP: SEE NOTE [facility] Comment:NONE GIVEN Prev. BX: SEE NOTE [facility] Comment:NONE GIVEN Statement Of Adequacy: SEE NOTE [facility] Comment:Satisfactory for selam luation.Endocervical/transformation zone componentpresent. General Categorization: TNP [facility] Interpretation/Result: SEE NOTE [facility] Comment:Cytology Results: Ne gative for intraepitheliallesion or malignancy. Cytology Comment SEE NOTE [facility] Comment:This Pap test has be en evaluated with computerassisted technology. Stitcher Operator: SEE NOTE [facility] Comment:CMB, CT(ASCP) CT Scr eening Location: [address] [address]Zzzbt preparation performed at: [facility], [address] [place] [id number] CLIA No. [id number] Review Stitcher Operator: SEE NOTE [facility] Comment:EMP, CT(ASCP)CT scre ening location: [address] [address]Jvhiz preparation performed at: [facility], [address] [place] [id number] CLIA No. [id number] Pathologist [facility] PAP Infection [facility] See Note SEE NOTE [facility] Comment:EXPLANATORY NOTE:The Pap is a screening test for cervical cancer. It isnot a diagnostic test and is subject to false negativeand false positive results. It is most reliable when asatisfactory sample, regularly obtained, is submittedwith relevant clinical findings and history, and whenthe Pap result is evaluated along with historic andcurrent clinical information.THIS TEST WAS PERFORMED AT:[address] [id number] MERATI,MD 09/11/2023 09/11/2023 Narrative [facility] - 09/19/2023 11:57 AM EDT SEE SCANNED RESULTS IN [id number] us Angelia Kuo MD LAB PATHOLOGY ORDERAB LES Final Result [facility] [address] [place] [address] [phone] * Hepatitis C Viral RNA, Quantitative, Real-Time PCR (07/08/2022 8:03 AM EDT) HCV RNA, QN Real Time PCR <15 NOT DETECTED NOT DETECTED IU/mL [facility] HCV RNA QN Real Time PCR <1.18 NOT DETECTED NOT DETECTED Log IU/mL [facility] Comment: This test was performed using Real-Time Polymerase Chain Reaction. Reportable Range: 15 IU/mL to 100,000,000 IU/mL (1.18 Log IU/mL to 8.00 Log IU/mL). ?? The analytical performance characteristics of this assay have been determined by [facility]. The modifications have not been cleared or approved by the FDA. This assay has been validated pursuant to the CLIA regulations and is used for clinical purposes. ?? For more information on this test, go to: http://education.Sky Frequency/faq/PZC18j0 (This link is being provided for informational/ educational purposes only.) 07/08/2022 8:03 AM EDT 07/08/2022 8:03 AM EDT Narrative [facility] - 07/09/2022 2:43 PM EDT FASTING:YES FASTING: YES Angelia Kuo MD LAB BLOOD ORDERABLES Final Result [facility] [address], [place] [address] [facility] [address] [place] [address] * HIV-1/2 Antigen and Antibodies, Fourth Generation, with Reflexes (07/08/2022 8:03 AM EDT) HIV Antigen/Antibody, 4th Generation NON-REAC TIVE NON-REAC TIVE [facility] Comment: HIV-1 antigen and HIV-1/HIV-2 antibodies were not detected. There is no laboratory evidence of HIV infection. PLEASE NOTE: This information has been disclosed to you from records whose confidentiality may be protected by state law. ??If your state requires such protection, then the state law prohibits you from making any further disclosure of the information without the specific written consent of the person to whom it pertains, or as otherwise permitted by law. A general authorization for the release of medical or other information is NOT sufficient for this purpose. ?? For additional information please refer to http://education.Sky Frequency/faq/TPV921 (This link is being provided for informational/ educational purposes only.) The performance of this assay has not been clinically validated in patients less than 2 years old. Blood Venous blood specimen / Unknown 07/08/2022 8:03 AM EDT 07/08/2022 8:03 AM EDT Narrative [facility] - 07/09/2022 2:43 PM EDT FASTING:YES FASTING: YES Angelia Kuo MD LAB BLOOD ORDERABLES Final Result [facility] [address], [facility] [place] [address] [facility] [address] [place] [address] from Last 3 Months or Most Recently Relevant to Health [place] [id number] [place] [id number] Care Teams Construction Millwright Relationship Specialty Start Date End Date Angelia Jackson MD [address] [place] [id number] PCP - General Family Medicine 01/19/18
--- OUTSIDE RECORDS SUMMARY | 2024-07-18 17:34 | XMS_ITS | Encounter Summary ---
Author Organization [employer] Address [address] [place] [address] Care Team Providers Care Investigation Specialist Name Role Phone Angelia Jackson MD Primary Care Provide r Encounter Details Date Type Department Care Team (Latest Contact Info) Description 07/18/2024 Travel Social History Tobacco Use Types Packs/Day Years [...] AM EDT documented as of this encounter Plan of Treatment Not on file documented as of this encounter Visit Diagnoses Not on filedocumented in this encounter Additional Health Concerns Assessment Noted Time PHQ-9 Depression Total Score: 0 07/19/19 25 2:30 PM EDT documented as of this encounter Care Teams Investigation Specialist Relationship Specialty Start Date End Date Angelia Jackson MD [address] [place] [address] PCP - General Family Medicine 01/19/18 documented as of this encounter
[2024-07-18 17:54] LABS: Bacterial Vaginosis PCR POSITIVE (Negative); Candida Group PCR NOT DETECTED (Not Detect); Candida glab krusei PCR NOT DETECTED (Not Detect); Trichomonas vaginalis PCR NOT DETECTED (Not Detect)
== END 2024-07-18 16:22 | disposition home or self-care (01) ==
LOC: HO.HHCLNP 16:21
PROVIDERS: Visit Provider Internal Medicine
DX: N89.8 Other specified noninflammatory disorders of vagina (principal)
CPT/HCPCS: 81515

== ENCOUNTER 2024-12-31 18:51 | Outpatient (REF) | payer OTHER, SELFPAY ==
--- OUTSIDE RECORDS SUMMARY | 2024-12-31 18:40 | XMS_ITS | Encounter Summary ---
Author Organization [employer] Address [address] [place] [address] Care Team Providers Care Cigarette Making Examiner Name Role Phone Angelia Jackson MD Primary Care Provide r Encounter Details Date Type Department Care Team (Latest Contact Info) Description 12/31/2024 6:40 PM EDT Office Visit [facility] [address] [place] [phone] Hoa Griffith MD [address] [place] [phone] Vulvovaginitis (Primary Dx) Social History Tobacco Use Types Packs/Day Years [...] Sign Reading Time Taken Comments Blood Pressure 138/84 12/31/2024 6:09 PM EDT Pulse 77 12/31/2024 6:09 PM EDT Temperature 36.5 C (97.7 F) 12/31/2024 6:09 PM EDT Respiratory Rate 16 12/31/2024 6:09 PM EDT Oxygen Saturation 99% 12/31/2024 6:09 PM EDT Inhaled Oxygen Concentration - - Weight 62.7 kg (138 lb 3.2 oz) 12/31/2024 6:09 P M EDT Height 160 cm (5' 3 ) 12/31/2024 6:09 PM EDT Body Mass Index 24.48 12/31/2024 6:09 PM EDT documented in this encounter Progress Notes * Hoa Griffith MD - 12/31/2024 6:40 PM EDT SUBJECTIVE: Jalyn Mantilla is a 29 y.o. year old female who presents for Walk In Center/vaginal discharge. Denies recent illness, injury, or hospitalization. Acute Concerns: Whitish pruriginous vaginal discharge x 2w associated to significant vulvar pruritus. Neg fever, dysuria, dyspareunia, pelvic pain. LMP 2w ago/. Social History Social History Narrative Not on file Problem List[1] Family History[2] Review of Systems Constitutional: Negative for chills, fatigue and fever. HENT: Negative for congestion, ear pain, nosebleeds, rhinorrhea, sinus pressure, sore throat and trouble swallowing. Eyes: Negative for pain and discharge. Respiratory: Negative for cough, chest tightness and shortness of breath. Cardiovascular: Negative for chest pain, palpitations and leg swelling. Gastrointestinal: Negative for abdominal pain, blood in stool, constipation, diarrhea and nausea. Endocrine: Negative for polydipsia and polyuria. Genitourinary: Positive for vaginal discharge. Negative for dysuria, frequency, genital sores and pelvic pain. Musculoskeletal: Negative for back pain and neck pain. Skin: Negative for rash. Allergic/Immunologic: Negative for environmental allergies. Neurological: Negative for dizziness, seizures, weakness, light-headedness and headaches. Hematological: Negative for adenopathy. Psychiatric/Behavioral: Negative for agitation, behavioral problems, self-injury and suicidal ideas. OBJECTIVE: Vitals: 12/31/24 1809 BP: 138/84 Pulse: 77 Resp: 16 Temp: 97.7 ??F (36.5 ??C) SpO2: 99% Physical Exam HENT: Right Ear: Tympanic membrane and ear canal normal. Left Ear: Tympanic membrane and ear canal normal. Mouth/Throat: Mouth: Mucous membranes are moist. Pharynx: No oropharyngeal exudate or posterior oropharyngeal erythema. Eyes: Pupils: Pupils are equal, round, and reactive to light. Cardiovascular: Rate and Rhythm: Regular rhythm. Pulses: Normal pulses. Heart sounds: Normal heart sounds. No murmur heard. Pulmonary: Breath sounds: Normal breath sounds. Abdominal: General: Bowel sounds are normal. Palpations: Abdomen is soft. Tenderness: There is no abdominal tenderness. Musculoskeletal: General: Normal range of motion. Cervical back: Neck supple. Skin: General: Skin is warm. Neurological: General: No focal deficit present. Mental Status: She is alert and oriented to person, place, and time. Psychiatric: Mood and Affect: Mood normal. Behavior: Behavior normal. Problem List Items Addressed This Visit Vulvovaginitis - Primary Most likely from Steffany. Diflucan tablet x 1+ Lotrisone cream twice daily to vulvar area, can apply Desitin ointment as well. Follow-up vaginal swab results Avoid using pantiliners, vaginal douches or scented vaginal sprays Follow Up: Medications Ordered Prior to Encounter[3] [1] Patient Active Problem List Diagnosis Vitamin D deficiency Shoulder pain Mixed anxiety and depressive disorder Heartburn Change in mole Anxiety Acquired hypothyroidism Encounter for screening and preventative care Other constipation Skin tag Other viral warts Hair loss Encounter for Papanicolaou smear for cervical cancer screening Dysmenorrhea Neck pain Vaginal discharge Abnormal urine odor Vulvovaginitis [2] No family history on file. [3] Current Outpatient Medications on File Prior to Visit Medication Sig Dispense Refill baclofen (Lioresal) 10 MG tablet Take 1 [...] and at bedtime (pain). 150 g 3 Diclofenac Sodium 1 % gel Apply 1 Application topically every 12 (twelve) hours if needed (apply onaffected charisma). 150 g 1 Fluocinolone Acetonide Scalp ([place]-Smoothe/FS Scalp) 0.01 % oil Once weekly at night and apply head cover 118.28 mL 2 ketoconazole (Nizoral) 2 % shampoo Once weekly Do not start before October 30, 2023. 120 mL 1 No current facility-administered medications on file prior to visit. documented in this encounter Miscellaneous Notes * Assessment & Plan Note - Hoa Griffith MD - 12/31/2024 6:47 PM EDT Associated Problem(s): Vulvovaginitis Most likely from Steffany. Diflucan tablet x 1+ Lotrisone cream twice daily to vulvar area, can apply Desitin ointment as well. Follow-up vaginal swab results Avoid using pantiliners, vaginal douches or scented vaginal sprays documented in this encounter Plan of Treatment Scheduled Orders Name Type Priority Associated Diagnoses Orde r Schedule Bacterial Vaginosis Microbiology Routine Vulvovaginitis Expected: 12/31/2024 (Approximate), Expires: 12/31/2025 documented as of this encounter Procedures Procedure Name Priority Date/Time Associated Diagnosis Comments CHLAMYDIA/N. GONORRHOEAE RNA, TMA, UROGENITAL Routine 01/01/2025 12:00 AM EDT Vulvovaginitis documented in this encounter Results * Chlamydia/N. Gonorrhoeae RNA, TMA, Urogenitial (01/01/2025 12:00 AM EDT) CT PCR NOT DETECTED Not Detect. [facility] Comment:A not detected test result does not exclude the possibilityof infection because test results can be affected byimproper specimen collection, concurrent antibiotic therapy,or the number of organisms in the specimen which may bebelow the sensitivity of the test. As with many diagnostictests, results from the Xpert CT/NG assay should beinterpreted in conjunction with other laboratory andclinical data available to the clinician.Xpert CT/NG performance has not been evaluated in patientsless than 14 years of age. The assay should not be used forthe evaluationof suspected sexual abuse or for other medico-legalindications. Additional testing is recommended in anycircumstance when false positive or false negative resultscould lead to adverse medical, social or psychologicalconsequences. NG PCR NOT DETECTED Not Detect. [facility] Comment:A not detected test result does not exclude the possibilityof infection because test results can be affected byimproper specimen collection, concurrent antibiotic therapy,or the number of organisms in the specimen which may bebelow the sensitivity of the test. As with many diagnostictests, results from the Xpert CT/NG assay should beinterpreted in conjunction with other laboratory andclinical data available to the clinician.Xpert CT/NG performance has not been evaluated in patientsless than 14 years of age. The assay should not be used forthe evaluationof suspected sexual abuse or for other medico-legalindications. Additional testing is recommended in anycircumstance when false positive or false negative resultscould lead to adverse medical, social or psychologicalconsequences. Urine (Urine, Random) 01/01/2025 01/01/2025 us Hoa Griffith MD LAB MICROBIOLOGY - GENER AL ORDERABLES Final Result [facility] [address] [place] [phone] documented in this encounter Visit Diagnoses Diagnosis Vulvovaginitis- Primary Unspecified vaginitis and vulvovaginitis documented in this encounter Additional Health Concerns Assessment Noted Time PHQ-9 Depression Total Score: 0 07/19/19 25 2:30 PM EDT documented as of this encounter Care Teams Cigarette Making Examiner Relationship Specialty Start Date End Date Angelia Jackson MD [address] [place] [address] PCP - General Family Medicine 01/19/18 documented as of this encounter
[2025-01-01 12:30] LABS: Bacterial Vaginosis PCR NEGATIVE (Negative); Candida Group PCR DETECTED (Not Detect); Candida glab krusei PCR NOT DETECTED (Not Detect); Trichomonas vaginalis PCR NOT DETECTED (Not Detect)
[2025-01-01 12:59] LABS: CT PCR NOT DETECTED (Not Detect.); NG PCR NOT DETECTED (Not Detect.)
--- OUTSIDE RECORDS SUMMARY | 2025-01-01 13:56 | XMS_ITS | Encounter Summary ---
Author Organization [employer] Address [address] [facility] [address] [place] [address] Care Team Providers Care Wastewater Treatment Operator Name Role Phone Angelia Jackson MD Primary Care Provide r Encounter Details Date Type Department Care Team (Latest Contact Info) Description 12/31/2024 Travel Social History Tobacco Use Types Packs/Day [...] documented as of this encounter Care Teams Wastewater Treatment Operator Relationship Specialty Start Date End Date Angelia Jackson MD [address] [place] [address] PCP - General Family Medicine 01/19/18 documented as of this encounter
--- OUTSIDE RECORDS SUMMARY | 2025-01-01 13:56 | XMS_ITS | Clinical Summary ---
Author Organization [employer] Address [address] [place] [address] 7 [place] [address] Care Team Providers Care Bobbin Dumper Name Role Phone Angelia Jackson MD Primary [...] muscle spasms. 60 tablet 1 4 Active Diclofenac Sodium 1 % gel Apply 2 g topically if needed in the morning, at noon, in the evening, and at bedtime (pain). 150 g 3 4 Active Fluocinolone Acetonide Scalp ([facility]/ FS Scalp) 0.01 % oilIndications: Seborrheic dermatitis Once weekly at night and apply head cover 118.28 mL 2 4 Active ketoconazole (Nizoral) 2 % shampooIndicati ons:Seborrheic dermatitis Once weekly Do not start before October 30, 2023. 120 mL 1 4 Active Diclofenac Sodium 1 % gelIndications: Neck pain Apply 1 Application topically every 12 (twelve) hours if needed (apply on affected charisma). 150 g 1 5 Active clotrimazole-be tamethasone (Lotrisone) cream Apply topically 2 times daily for 28 days. 30 g 5 01/29/20 25 Active fluconazole (Diflucan) 150 MG tablet Take 1 tablet (150 mg) by mouth 1 (one) time for 1 dose. 1 tablet 5 01/01/20 25 Active Problems Problem Noted Date Diagnosed Date Vulvovaginitis 12/31/2024 Assessment & Plan (12/31/2024 6:47 PM EDT): Most likely from Steffany. Diflucan tablet x 1+ Lotrisone cream twice daily to vulvar area, can apply Desitin ointment as well. Follow-up vaginal swab results Avoid using pantiliners, vaginal douches or scented vaginal sprays Dysmenorrhea 07/18/2024 Assessment & Plan (07/18/2024 3:43 [...] Encounters Date Type Department Care Team Description 12/31/2024 6:40 PM EDT Office Visit [facility] [address] [place] [id number] Hoa Griffith MD Vulvovaginitis (Primary Dx) 12/31/2024 Travel from Last 3 Months Immunizations Immunization Administration Dates Next Due Tdap 09/25/2018 Social [...] Mass Index 24.48 12/31/2024 6:09 PM EDT Plan of Treatment Health Maintenance Due Date Last Done Comments Alcohol/Substance Use Screening 2009 Family Planning (PISQ) 02/12/2012 HPV Vaccines (1 - 3-dose series) 02/12/2012 Hepatitis B Vaccines (1 of 3 - 19+ 3-dose series) 02/12/2016 COVID-19 Vaccine (2023-2 5 season) 2024 Influenza Vaccine (#1) 2024 SDOH Screening 07/11/2025 07/11/2024 Depression Screening 07/18/2025 07/18/2024, 07/18/2024 Disability Screening 07/18/2025 07/18/2024 Tobacco Screening 12/31/2025 12/31/2024 Pap Smear 09/10/2028 09/11/2023, 08/21/2018 DTaP/Tdap/Td Vaccines [...] patient's age to complete this topic Meningococcal B Vaccine Aged Out No l onger eligible based on patient's age to complete this topic Meningococcal Vaccine Aged Out No jelani marysol eligible based on patient's age to complete this topic Pneumococcal Vaccine: Pediatrics (0 to 5 Years) and At-Risk Patients (6 to 49) Years Aged Out No longer eligible b ased [...] UROGENITAL Routine 01/01/2025 12:00 AM EDT Vulvovaginitis BACTERIAL VAGINOSIS PANEL Routine 12/31/2024 12:00 AM EDT Bacterial vaginosis THINPREP IMAGING SYSTEM PAP Routine 09/11/2023 12:00 AM EDT HEPATITIS C VIRAL RNA, QUANTITATIVE, REAL-TIME PCR Routine 07/08/2022 8:03 AM EDT Encounter for screening and preventative care HIV 1/2 ANTIGEN/ANTIBODY, FOURTH GENERATION W/RFL Routine 07/08/2022 8:03 AM EDT Encounter for screening and preventative care from Last 3 Months or Most Recently Relevant to Health Maintenance Results * Chlamydia/N. Gonorrhoeae RNA, TMA, Urogenitial (01/01/2025 12:00 AM EDT) CT PCR NOT DETECTED Not Detect. [facility] Comment:A not detected test result [...] psychologicalconsequences. NG PCR NOT DETECTED Not Detect. [facility] Comment:A not detected test result [...] MICROBIOLOGY - GENER AL ORDERABLES Final Result [facility] [address] [place] [phone] * (ABNORMAL) Bacterial Vaginosis (12/31/2024 12:00 AM EDT) TRICHOMONAS VAGINALIS DETECTION BY PCR NOT DETECTED Not Detect [facility] BACTERIAL VAGINOSIS DETECTION BY PCR NEGATIVE Negative [facility] Comment:The BV organism targ ets of the Xpert Xpress MVP test can becommensal in women; Xpert Xpress MVP positive results forbacterial vaginosis should be considered in conjunction withother clinical and patient information to determine thedisease status. Organisms that are not detected by the XpertXpress MVP test have also been reported to be associatedwith BV and aerobic vaginitis.The Xpert Xpress MVP test performance has not been evaluatedin patients under the age of 14. STEFFANY GROUP DETECTION BY PCR DETECTED(A) Not Detect [facility] Steffany glab krusei PCR NOT DETECTED Not Detect [facility] 12/31/2024 12/31/2024 us Hoa Griffith MD LAB MICROBIOLOGY - GENER AL ORDERABLES Final Result [facility] [address] [place] [phone] * ThinPrep Imaging System Pap (09/11/2023 12:00 AM EDT) SOURCE: SEE NOTE [facility] Comment:None given Report Status: TNP [facility] Clinical Information: SEE NOTE [facility] Comment:R LMP: SEE NOTE [facility] Comment:09/03/2023 Prev. PAP: SEE NOTE [facility] Comment:NONE GIVEN Prev. BX: SEE NOTE [facility] Comment:NONE GIVEN Statement Of Adequacy: SEE NOTE [facility] Comment:Satisfactory for selam luation.Endocervical/transformation zone componentpresent. General Categorization: TNP [facility] Interpretation/Result: SEE NOTE [facility] Comment:Cytology Results: Ne gative for intraepitheliallesion or malignancy. Cytology Comment SEE NOTE [facility] Comment:This Pap test has be en evaluated with computerassisted technology. Tucking Machine Operator: SEE NOTE [facility] Comment:CMB, CT(ASCP) CT Scr eening Location: [address] [id number] preparation performed at: [facility], [address] [place] [id number] CLIA No. [id number] Review Tucking Machine Operator: SEE NOTE [facility] Comment:EMP, CT(ASCP)CT scre ening location: [address] [address]Tqflz preparation performed at: [facility], [address] [place] [id number] CLIA No. [id number] Pathologist [facility] PAP Infection [facility] See Note SEE NOTE [facility] Comment:EXPLANATORY NOTE:The Pap is a screening test for cervical cancer. It isnot a diagnostic test and is subject to false negativeand false positive results. It is most reliable when asatisfactory sample, regularly obtained, is submittedwith relevant clinical findings and history, and whenthe Pap result is evaluated along with historic andcurrent clinical information.THIS TEST WAS PERFORMED AT:[address] [id number] MERATI,MD 09/11/2023 09/11/2023 Narrative [facility] - 09/19/2023 11:57 AM EDT SEE SCANNED RESULTS IN [id number] us Angelia Kuo MD LAB PATHOLOGY ORDERAB LES Final Result [facility] [address] [place] [phone] * Hepatitis C Viral RNA, Quantitative, Real-Time PCR (07/08/2022 8:03 AM EDT) HCV RNA, QN Real Time PCR <15 NOT DETECTED NOT DETECTED IU/mL [facility] RNA QN Real Time PCR <1.18 NOT DETECTED NOT DETECTED Log IU/mL [facility] Comment: This test was performed using Real-Time Polymerase Chain Reaction. Reportable Range: 15 IU/mL to 100,000,000 IU/mL (1.18 Log IU/mL to 8.00 Log IU/mL). The analytical performance characteristics of this assay have been determined by [facility]. The modifications have not been cleared or approved by the FDA. This assay has been validated pursuant to the CLIA regulations and is used for clinical purposes. For more information on this test, go to: http://education.[employer]/faq/HIL20k3 (This link is being provided for informational/ educational purposes only.) 07/08/2022 8:03 AM EDT 07/08/2022 8:03 AM EDT [facility] - 07/09/2022 2:43 PM EDT FASTING:YES FASTING: YES Angelia Kuo MD LAB BLOOD ORDERABLES Final Result [facility] [address], [place] [address] [facility] [address] [place] [phone] * HIV-1/2 Antigen and Antibodies, Fourth Generation, with Reflexes (07/08/2022 8:03 AM EDT) HIV Antigen/Antibody, 4th Generation NON-REAC TIVE NON-REAC TIVE [facility] Comment: HIV-1 antigen and HIV-1/HIV-2 antibodies were not detected. There is no laboratory evidence of HIV infection. PLEASE NOTE: This information has been disclosed to you from records whose confidentiality may be protected by state law. If your state requires such protection, then the state law prohibits you from making any further disclosure of the information without the specific written consent of the person to whom it pertains, or as otherwise permitted by law. A general authorization for the release of medical or other information is NOT sufficient for this purpose. For additional information please refer to http://education.[employer]/faq/VQG612 (This link is being provided for informational/ educational purposes only.) The performance of this assay has not been clinically validated in patients less than 2 years old. Blood Venous blood specimen / Unknown 07/08/2022 8:03 AM EDT 07/08/2022 8:03 AM EDT Narrative [facility] - 07/09/2022 2:43 PM EDT FASTING:YES FASTING: YES Angelia Kuo MD LAB BLOOD ORDERABLES Final Result [facility] [address], [facility] [place] [address] [facility] [address] [place] [phone] from Last 3 Months or Most Recently Relevant to Health Maintenance Insurance [employer] [address] [place] [address] Care Teams Bobbin Dumper Relationship Specialty Start Date End Date Angelia Jackson MD [address] [place] [address] PCP - General Family Medicine 01/19/18
== END 2024-12-31 18:52 | disposition home or self-care (01) ==
LOC: HO.LNP 18:51
PROVIDERS: Visit Provider Internal Medicine
DX: N76.0 Acute vaginitis (principal); Z20.2 Contact with and (suspected) exposure to infections with a predominantly sexual mode of transmission
CPT/HCPCS: 81515; 87491; 87591